=== PATIENT | male | born 1990 | race Caucasian/White ===

== ENCOUNTER 2018-12-20 10:41 | Observation (INO) | payer MEDICAID ==
[2018-12-20 10:43] VITALS: BMI 34.6
--- NOTE | 2018-12-20 11:39 | ED PDOC ---
HPI: Psych/Substance Abuse Time Seen by Provider: 12/20/18 11:06 Chief Complaint (Nursing): Psychiatric Evaluation History Per: Patient, EMS Additional Complaint(s): As per EMS they were called for a "safety check" for the patient but do not know who the caller was. Pt. states he was sleeping when EMS arrived. Offers no complaints but admits to "cutting" himself on Monday on the L forearm. Pt. states he does take meds for depression, PTSD, and anxiety and has been taking them as prescribed. Currently denies SI/HI, hallucinations. Past Medical History Reviewed: Historical Data, Nursing Documentation, Vital Signs Vital Signs: Last Vital Signs Temp 98.1 F 12/20/18 10:43 Pulse 115 H 12/20/18 10:43 Resp 20 12/20/18 10:43 BP 138/77 12/20/18 10:43 Pulse Ox 100 12/20/18 10:43 Primary Care Provider: FAMILY PROVIDER,NO - Medical History PMH: Anxiety, Depression, Hypercholesterolemia Denies: Diabetes, Hepatitis, HIV, HTN, Chronic Kidney Disease, Seizures, Sexually Transmitted Disease - Surgical History Surgical History: Appendectomy - Family History Family History: States: No Known Family Hx - Home Medications Home Medications: Ambulatory Orders Medication Instructions Recorded Bupropion HCl [Bupropion HCl Sr] 150 mg PO BID 12/20/18 Ergocalciferol (Vitamin D2) 50,000 unit PO SAT 12/20/18 [Vitamin D2] Topiramate [Topamax] 100 mg PO HS 12/20/18 Ziprasidone [Geodon Cap] 60 mg PO HS 12/20/18 - Allergies Allergies/Adverse Reactions: Allergies Allergy/AdvReac Type Severity Reaction Status Date / Time No Known Allergies Allergy Verified 03/23/17 11:31 Review of Systems ROS Statement: Except As Marked, All Systems Reviewed And Found Negative Physical Exam - Physical Exam Appears: Positive for: Well, Non-toxic, No Acute Distress Skin: Positive for: Normal Color, Warm. Negative for: Rash Eye Exam: Positive for: EOMI, Normal appearance, PERRL ENT: Positive for: Normal ENT Inspection Neck: Positive for: Supple Cardiovascular/Chest: Positive for: Regular Rate, Rhythm. Negative for: Tachycardia Respiratory: Positive for: Normal Breath Sounds. Negative for: Respiratory Distress Gastrointestinal/Abdominal: Positive for: Soft. Negative for: Tenderness Back: Positive for: Normal Inspection Extremity: Positive for: Other (2 new healing linear scars) - Laboratory Results Result Diagrams: 12/20/18 12:15 12/20/18 12:15 - ECG ECG: Positive for: Interpreted By Me ECG Rhythm: Positive for: Sinus Tachycardia. Negative for: ST/T Changes Rate: 111 O2 Sat by Pulse Oximetry: 100 - Progress ED Course And Treament: Labs, crisis eval. Pt. placed on 1:1 Pt. began vomiting in ED. 1500 HR: 112 Denies chest pain, SOB. Reports feeling anxious as he does not like being in hospitals. Also feels dehydrated. Refuses IV and anxiety meds. No tremorts noted. Pt. admits to drinking alcohol last night but states he does not drink daily. 1730 HR: 122 Pt. still feeling anxious. No tremors. Ativan 1mg PO, IV bolus x 1, zofran 4mg, pepcid 20mg IV ordered. Repeat EKG: SR at [address]-T wave changes Disposition - Clinical Impression Clinical Impression: Depression - Patient ED Disposition Is Patient to be Admitted: Transfer of Care (Signed out to Jaxson RICCI pending re-evaluation) - Disposition Disposition Time: 20:00 Condition: FAIR
[2018-12-20 12:15] LABS: BARBITURATES, UR NEGATIVE (NEGATIVE); BENZODIAZEPINES, UR NEGATIVE (NEGATIVE); OPIATES, UR NEGATIVE (NEGATIVE); PHENCYCLIDINE, UR NEGATIVE (NEGATIVE)
[2018-12-20 12:24] LABS: BASO % 0.8 % (0.0-2.0); EOS % 0.6 % (0.0-4.0); HEMOGLOBIN 16.6 g/dL (12.0-18.0); LYMPH # 1.5 K/uL (1.0-4.3); LYMPH % 32.6 % (20.0-40.0); MEAN CELL VOLUME 86.1 fl (80.0-94.0); MEAN CORPUSCULAR HGB CONC 32.6 g/dL (33.0-37.0); MEAN PLATELET VOLUME 8.8 fl (7.2-11.7); MONO # 0.3 K/uL (0.0-0.8); MONO % 5.8 % (0.0-10.0); NEUT # 2.8 K/uL (1.8-7.0); NEUT % 60.2 % (50.0-75.0); NRBC % 0.1 % (0.0-0.0); RBC 5.93 Mil/uL (4.40-5.90); RED CELL DISTRIBUTION WIDTH 13.1 % (11.5-14.5); WHITE BLOOD COUNT 4.7 K/uL (4.8-10.8)
[2018-12-20 12:35] LABS: SQUAMOUS EPITHIAL < 1 /hpf (0-5); URINE AMORPHOUS SEDIMENT MODERATE /ul (<OCC); URINE BACTERIA RARE (<OCC); URINE BILIRUBIN NEGATIVE (NEGATIVE); URINE BLOOD NEGATIVE (NEGATIVE); URINE CLARITY CLOUDY (Clear); URINE COLOR YELLOW (YELLOW); URINE GLUCOSE (UA) NEG (NEGATIVE); URINE LEUKOCYTE ESTERASE NEG Leu/uL (Negative); URINE PROTEIN 30 mg/dL (NEGATIVE); URINE UROBILINOGEN 0.2-1.0 mg/dL (0.2-1.0)
[2018-12-20 12:36] LABS: ACETAMINOPHEN < 10.0 ug/ml (10.0-30.0); ALB/GLOB RATIO 1.4 (1.0-2.1); ALBUMIN 5.1 g/dL (3.5-5.0); ALT/SGPT 194 U/L (21-72); AST/SGOT 92 U/L (17-59); BLOOD UREA NITROGEN 4 mg/dl (9-20); CALCIUM 8.9 mg/dL (8.4-10.2); GFR NON-AFRICAN AMERICAN > 60; SALICYLATE < 1.0 mg/dl
--- NOTE | 2018-12-20 17:15 | RAD ---
HISTORY: cough COMPARISON: Chest x-ray performed 03/23/17 TECHNIQUE: Chest PA and lateral, 2 views FINDINGS: LUNGS: No focal consolidation. Please note that chest x-ray has limited sensitivity for the detection of pulmonary masses. PLEURA: No significant pleural effusion identified. No definite pneumothorax . CARDIOVASCULAR: The cardiomediastinal silhouette appears within normal limits of size. No atherosclerotic calcification present. OSSEOUS STRUCTURES: No acute osseous abnormality identified. VISUALIZED UPPER ABDOMEN: Unremarkable. OTHER FINDINGS: None. IMPRESSION: No acute findings identified.
--- NOTE | 2018-12-20 18:37 | CARD ---
APPROVED REPORT Date of service: 12/20/2018 EKG Measurement Heart [id number] PA 132P25 [id number] <Conclusion> Sinus tachycardia Otherwise normal ECG
[2018-12-20] MEDS ORDERED: Sodium Chloride 0.9% 1,000 ML IV STA ×3 (18:44→21:33)
--- NOTE | 2018-12-20 20:36 | ED PDOC ---
- Laboratory Results Result Diagrams: 12/20/18 12:15 12/20/18 12:15 Lab Results: Total Bilirubin 0.4 mg/dl (0.2-1.3) 12/20/18 12:15 AST 92 U/L (17-59) H 12/20/18 12:15 ALT 194 U/L (21-72) H D 12/20/18 12:15 Alkaline Phosphatase 83 U/L (38-126) 12/20/18 12:15 Total Protein 8.7 G/DL (6.3-8.2) H 12/20/18 12:15 Albumin 5.1 g/dL (3.5-5.0) H D 12/20/18 12:15 Globulin 3.7 gm/dL (2.2-3.9) 12/20/18 12:15 Albumin/Globulin Ratio 1.4 (1.0-2.1) 12/20/18 12:15 Urine Color Yellow (YELLOW) 12/20/18 12:09 Urine Clarity Cloudy (Clear) 12/20/18 12:09 Urine pH 7.0 (5.0-8.0) 12/20/18 12:09 Ur Specific [place] 1.014 (1.003-1.030) 12/20/18 12:09 Urine Protein 30 mg/dL (NEGATIVE) 12/20/18 12:09 Urine Glucose (UA) Neg mg/dL (NEGATIVE) 12/20/18 12:09 Urine Ketones Negative mg/dL (NEGATIVE) 12/20/18 12:09 Urine Blood Negative (NEGATIVE) 12/20/18 12:09 Urine Nitrate Negative (NEGATIVE) 12/20/18 12:09 Urine Bilirubin Negative (NEGATIVE) 12/20/18 12:09 Urine Urobilinogen 0.2-1.0 mg/dL (0.2-1.0) 12/20/18 12:09 Ur Leukocyte Esterase Neg Adri/uL (Negative) 12/20/18 12:09 Urine RBC (Auto) 2 /hpf (0-3) 12/20/18 12:09 Urine Microscopic WBC 5 /hpf (0-5) 12/20/18 12:09 Ur Squamous Epith Cells < 1 /hpf (0-5) 12/20/18 12:09 Amorphous Sediment Moderate /ul (<OCC) H 12/20/18 12:09 Urine Bacteria Rare (<OCC) 12/20/18 12:09 Hyaline Casts 3-5 /hpf (0-2) H 12/20/18 12:09 - ECG O2 Sat by Pulse Oximetry: 100 - Progress ED Course And Treament: Case endorsed to global technical writer from Vanesa RICCI pending re-eval and psych admission Patient states he feels anxious. IV ativan ordered. Second IV NS bolus ordered Patient HR still 120's on re-eval Dr. Veras spoke with Dr. Goetz, medical service on-call, for placement in telemetry observation for tachycardia. Disposition - Clinical Impression Clinical Impression: Depression, Tachycardia - POA Present On Arrival: None - Disposition Disposition: Hospitalized as Observation Patient Disposition Time: 23:30 Condition: FAIR
--- NOTE | 2018-12-21 08:45 | CP.PCM.CON ---
History of Present Illness - History of Present Illness History of Present Illness: Psychiatry consult CC: "I'm fine." HPI: 28 yo male, w/ reported h/o MDD w/ psychotic features, PTSD, Anxiety referred by [place] police after his friend called expressing concerns that the patient may harm himself, the police did a welfare check and brought him to the hospital. He is currently admitted to telemetry for tachycardia. Patient reports that he does not feel acutely depressed or anxious. He reports that he made superficial cuts to his arm >10 days ago. He reports that he cuts intermittently "to feel in control", but he denies acute suicidal ideation/plan/intent. He also reports that he drank 4 beers on the night he was brought to the hospital. Patient currently A + O x 3, with full range/bright affect. He is able to contract for safety at this time. He reports that he plans to continue outpatient treatment with Dr. Casiano and weekly therapy with his therapist, Rere. He denies acute AH/VH/SI/HI/paranoia/delusions/self injurious ideation. He reports normal sleep/appetite. Patient does not want acute psychiatric admission at this time. PPHx: H/o MDD w/ psychosis, PTSD, Anxiety; compliant with outpatient treatment and medications (Buproprion and Geodon) PMHx: HLD ALL: NKDA SHx: Lives w/ his aunt, drinks ETOH socially, denies daily ETOH use, denies drug/cig use Impression: 28 yo male, w/ h/o MDD, PTSD, Anxiety, r/o Borderline Personality Disorder, denies acute depression/anxiety/ideation to harm self or others. -No 1:1 indicated at this time -Patient is psychiatrically clear for discharge with continued outpatient psychiatric follow-up -Continue current psychiatric medications Past Patient History - Past Social History Smoking Status: Never Smoked - CARDIAC Hx Hypercholesterolemia: Yes Hx Hypertension: No - PULMONARY Hx Tuberculosis: No - NEUROLOGICAL Hx Seizures: No - HEENT Hx HEENT Problems: No - RENAL Hx Chronic Kidney Disease: No - ENDOCRINE/METABOLIC Hx Endocrine Disorders: No - HEMATOLOGICAL/ONCOLOGICAL Hx AIDS: No Hx Human Immunodeficiency Virus (HIV): No - INTEGUMENTARY Hx Dermatological Problems: No - MUSCULOSKELETAL/RHEUMATOLOGICAL Hx Falls: No - GASTROINTESTINAL Hx Gastrointestinal Disorders: Yes Hx Gastroesophageal Reflux: Yes Other/Comment: acid reflux - GENITOURINARY/GYNECOLOGICAL Hx Sexually Transmitted Disorders: No - PSYCHIATRIC Hx Substance Use: No - SURGICAL HISTORY Hx Appendectomy: Yes - ANESTHESIA Hx Anesthesia: Yes Hx Anesthesia Reactions: No Hx Malignant Hyperthermia: No Has any member of the family had a problem w/ anesthesia?: No Meds Allergies/Adverse Reactions: Allergies Allergy/AdvReac Type Severity Reaction Status Date / Time No Known Allergies Allergy Verified 03/23/17 11:31 - Medications Medications: Current Medications Bupropion HCl (Wellbutrin Sr 150 Mg) 150 mg PO BID CINTHYA Ergocalciferol (Drisdol 50,000 Intl Units Cap) 1 cap PO SAT CINTHYA Metoprolol Tartrate (Lopressor) 50 mg PO Q12 CINTHYA Topiramate (Topamax) 100 mg PO HS CINTHYA Ziprasidone (Geodon Cap) 60 mg PO HS CINTHYA Results - Vital Signs Recent Vital Signs: Last Vital Signs Temp 98.5 F 12/21/18 07:58 Pulse 102 H 12/21/18 07:58 Resp 18 12/21/18 07:58 BP 128/77 12/21/18 07:58 Pulse Ox 95 12/21/18 07:58 - Labs Result Diagrams: 12/20/18 12:15 12/20/18 12:15 Labs: Laboratory Results - last 24 hr 12/20/18 12/20/18 12/20/18 11:30 12:09 12:15 WBC RBC Hgb Hct MCV MCH MCHC RDW Plt Count MPV Neut % (Auto) Lymph % (Auto) [place] % (Auto) Eos % (Auto) Baso % (Auto) Neut # (Auto) Lymph # (Auto) [place] # (Auto) Eos # (Auto) Baso # (Auto) Sodium 145 Potassium 3.4 L Chloride 108 H Carbon Dioxide 18 L Anion Gap 22 H BUN 4 L Creatinine 0.7 L Est GFR ( Amer) > 60 Est GFR (Non-Af Amer) > 60 Random Glucose 136 H Calcium 8.9 Total Bilirubin 0.4 AST 92 H ALT 194 H D Alkaline Phosphatase 83 Troponin I Total Protein 8.7 H Albumin 5.1 H D Globulin 3.7 Albumin/Globulin Ratio 1.4 TSH 3rd Generation Urine Color Yellow Urine Clarity Cloudy Urine pH 7.0 Ur Specific [place] 1.014 Urine Protein 30 Urine Glucose (UA) Neg Urine Ketones Negative Urine Blood Negative Urine Nitrate Negative Urine Bilirubin Negative Urine Urobilinogen 0.2-1.0 Ur Leukocyte Esterase Neg Urine RBC (Auto) 2 Urine Microscopic WBC 5 Ur Squamous Epith Cells < 1 Amorphous Sediment Moderate H Urine Bacteria Rare Hyaline Casts 3-5 H Salicylates Urine Opiates Screen Negative Urine Methadone Screen Negative Acetaminophen Ur Barbiturates Screen Negative Ur Phencyclidine Scrn Negative Ur Amphetamines Screen Negative U Benzodiazepines Scrn Negative U Oth Cocaine Metabols Negative U Cannabinoids Screen Positive H Alcohol, Quantitative 172 H 12/20/18 12/20/18 12/20/18 12:15 12:15 22:10 WBC 4.7 L RBC 5.93 H Hgb 16.6 Hct 51.0 MCV 86.1 D MCH 28.0 MCHC 32.6 L RDW 13.1 Plt Count 272 MPV 8.8 Neut % (Auto) 60.2 Lymph % (Auto) 32.6 [place] % (Auto) 5.8 Eos % (Auto) 0.6 Baso % (Auto) 0.8 Neut # (Auto) 2.8 Lymph # (Auto) 1.5 [place] # (Auto) 0.3 Eos # (Auto) 0.0 Baso # (Auto) 0.0 Sodium Potassium Chloride Carbon Dioxide Anion Gap BUN Creatinine Est GFR ( Amer) Est GFR (Non-Af Amer) Random Glucose Calcium Total Bilirubin AST ALT Alkaline Phosphatase Troponin I Total Protein Albumin Globulin Albumin/Globulin Ratio TSH 3rd Generation 0.87 Urine Color Urine Clarity Urine pH Ur Specific [place] Urine Protein Urine Glucose (UA) Urine Ketones Urine Blood Urine Nitrate Urine Bilirubin Urine Urobilinogen Ur Leukocyte Esterase Urine RBC (Auto) Urine Microscopic WBC Ur Squamous Epith Cells Amorphous Sediment Urine Bacteria Hyaline Casts Salicylates < 1.0 Urine Opiates Screen Urine Methadone Screen Acetaminophen < 10.0 L Ur Barbiturates Screen Ur Phencyclidine Scrn Ur Amphetamines Screen U Benzodiazepines Scrn U Oth Cocaine Metabols U Cannabinoids Screen Alcohol, Quantitative 12/21/18 00:24 WBC RBC Hgb Hct MCV MCH MCHC RDW Plt Count MPV Neut % (Auto) Lymph % (Auto) [place] % (Auto) Eos % (Auto) Baso % (Auto) Neut # (Auto) Lymph # (Auto) [place] # (Auto) Eos # (Auto) Baso # (Auto) Sodium Potassium Chloride Carbon Dioxide Anion Gap BUN Creatinine Est GFR ( Amer) Est GFR (Non-Af Amer) Random Glucose Calcium Total Bilirubin AST ALT Alkaline Phosphatase Troponin I < 0.0120 Total Protein Albumin Globulin Albumin/Globulin Ratio TSH 3rd Generation Urine Color Urine Clarity Urine pH Ur Specific [place] Urine Protein Urine Glucose (UA) Urine Ketones Urine Blood Urine Nitrate Urine Bilirubin Urine Urobilinogen Ur Leukocyte Esterase Urine RBC (Auto) Urine Microscopic WBC Ur Squamous Epith Cells Amorphous Sediment Urine Bacteria Hyaline Casts Salicylates Urine Opiates Screen Urine Methadone Screen Acetaminophen Ur Barbiturates Screen Ur Phencyclidine Scrn Ur Amphetamines Screen U Benzodiazepines Scrn U Oth Cocaine Metabols U Cannabinoids Screen Alcohol, Quantitative
[2018-12-21] MEDS: buPROPion SR 150 MG TABLET PO SCH ×2 (08:51→16:33)
--- NOTE | 2018-12-21 09:30 | CARD ---
APPROVED REPORT Date of service: 12/20/2018 EKG Measurement Heart [id number] CT 130P29 [id number] <Conclusion> Sinus tachycardia Non specific T-wave changes Abnormal ECG
[2018-12-21] MEDS ORDERED: Potassium Chloride 20 mEq ER Tab PO ONE (11:16)
--- NOTE | 2018-12-21 16:30 | CARD ---
APPROVED REPORT Date of service: 12/21/2018 EXAM: Two-dimensional and M-mode echocardiogram with Doppler and color Doppler. Other Information Quality : GoodRhythm : NSR INDICATION Abnormal EKG/Arrhythmia 2D DIMENSIONS IVSd1.06 (0.7-1.1cm)LVDd4.82 (3.9-5.9cm) LVOT Diameter2.29 (1.8-2.4cm)PWd0.97 (0.7-1.1cm) IVSs1.39 (0.8-1.2cm)LVDs2.97 (2.5-4.0cm) FS (%) 38.5 %PWs1.39 (0.8-1.2cm) M-Mode DIMENSIONS Left Atrium (MM)4.03 (2.5-4.0cm)IVSd1.03 (0.7-1.1cm) Aortic Root3.18 (2.2-3.7cm)LVDd5.41 (4.0-5.6cm) Aortic Cusp Exc.2.26 (1.5-2.0cm)PWd0.76 (0.7-1.1cm) IVSs1.47 cmFS (%) 33 % LVDs3.65 (2.0-3.8cm)PWs1.18 cm Aortic Valve AoV Peak Ahryroms810.0cm/sAoV VTI23.8cmAO Peak GR.7mmHg LVOT Peak Zvlomyco704.4cm/sLVOT VTI21.12cmAO Mean GR.4mmHg KAREEM (VMAX)1.93qw7TBI (VTI)1.73cm2 Mitral Valve MV E Hssxgycl84.1cm/sMV DECEL [id number] A Eptygdmm49.4cm/s MV FCL30cmG/A ratio1.9MVA (PHT)4.14cm2 TDI Lateral E' Peak V16.43cm/sMedial E' Peak V12.63cm/sE/Lateral E'5.7 E/Medial E'7.5 LEFT VENTRICLE The left ventricle is normal size. There is normal left ventricular wall thickness. The left ventricular systolic function is normal. The estimated ejection fraction is 60-65% No regional wall motion abnormalities noted.. The left ventricular diastolic function is normal. No left ventricle thrombus noted on this study. There is no ventricular septal defect visualized. There is no left ventricular aneurysm. There is no mass noted in the left ventricle. RIGHT VENTRICLE The right ventricle is normal size. There is normal right ventricular wall thickness. The right ventricular systolic function is normal. ATRIA The left atrium size is normal. The right atrium size is normal. The interatrial septum is intact with no evidence for an atrial septal defect. AORTIC VALVE The aortic valve is normal in structure. No aortic regurgitation is present. There is no aortic valvular stenosis. There is no aortic valvular vegetation. MITRAL VALVE The mitral valve is normal in structure. There is no evidence of mitral valve prolapse. There is no mitral valve stenosis. There is no mitral valve regurgitation noted. TRICUSPID VALVE The tricuspid valve is normal in structure. There is no tricuspid valve regurgitation noted. There is no tricuspid valve prolapse or vegetation. There is no tricuspid valve stenosis. PULMONIC VALVE The pulmonary valve is normal in structure. There is no pulmonic valvular regurgitation. There is no pulmonic valvular stenosis. GREAT VESSELS The aortic root is normal in size. The ascending aorta is normal in size. The pulmonary artery is normal. The IVC is normal in size and collapses >50% with inspiration. PERICARDIAL EFFUSION There is no pericardial effusion. There is no pleural effusion. <Conclusion> The estimated ejection fraction is 60-65% The left ventricular diastolic function is normal. The left atrium size is normal. There is no tricuspid valve regurgitation noted.
--- NOTE | 2018-12-22 01:13 | CON ---
DATE: 12/21/2018 CARDIOLOGY CONSULTATION REASON FOR CONSULTATION: Palpitation and sinus tachycardia. HISTORY OF PRESENT ILLNESS: The patient is a 28-year-old male who has a history of depression and attempted suicide in the past, admitted to have attempted to cut his left arm. The patient stated that he did something to his right arm in September 2018 with an intent to hurt himself. The patient denies any chest pain and is unaware of any prior cardiac history. SOCIAL HISTORY: The patient is a smoker, drinker and abuses cannabinoids. He lives with his mother. MEDICATIONS: Geodon 60 mg at bedtime, Lopressor 50 mg twice a day, Wellbutrin 150 mg twice a day, and Topamax 100 mg at bedtime. REVIEW OF SYSTEMS: No nausea or vomiting. No fever or chills. The patient does hear whispers associated to the auditory hallucinations. PHYSICAL EXAMINATION: GENERAL: The patient is a young male who does not appear to be in acute distress. VITAL SIGNS: Blood pressure 110/77, heart rate 102, temperature 98.5, and respirations 18. HEENT: Normocephalic. CHEST: Clear. HEART: S1 and S2, regular. EXTREMITIES: Abrasions noted in the right forearm. LABORATORY DATA: SMA-7: Sodium 145, potassium 3.4, chloride 108, CO2 of 18, glucose 156, BUN 4, creatine 0.7. One set of troponin is negative. TSH level is within normal limit. Hemoglobin and hematocrit are 16.6 and 51.0, white count 4.7, and platelet count 172,000. Urine drug screen is positive for cannabinoids. Alcohol level was 172 on admission. Admitting EKG revealed sinus tachycardia at a rate of 119 with nonspecific T-wave inversion. Repeat EKG revealed sinus tachycardia at 111. Chest x-ray was unremarkable. ASSESSMENT: 1. Alcohol intoxication and cannabinoid abuse. 2. Depression with a history of suicidal ideation. 3. Hypokalemia. RECOMMENDATIONS: Continue current Geodon or Lopressor. Supplement potassium with K-Dur 20 mEq orally now. Obtain D-dimer and an echocardiogram. Neil Leo MD [facility] # [id number]
--- NOTE | 2018-12-22 04:12 | HP ---
HISTORY OF PRESENT ILLNESS: The patient is a 28-year-old male with history of depression, on medications, presented to emergency room for anxiety/depression. The patient was found to be tachycardic in the range of 110 and the patient was admitted to the medical floor for further management. The patient denied to have any fever. No symptoms suggestive of shortness of breath or hypoxia. REVIEW OF SYSTEMS: Other review of systems is negative. ALLERGIES: NO KNOWN ALLERGIES. MEDICATIONS: Reviewed, as per MAR and ordered. SOCIAL HISTORY: Denied smoking, EtOH or substance abuse. FAMILY HISTORY: Noncontributory. PAST MEDICAL HISTORY: Depression/anxiety. PHYSICAL EXAMINATION: GENERAL: The patient was found to be not in any cardiopulmonary distress. VITAL SIGNS: Blood pressure 124/76, heart rate 102, temperature 98.6, respiratory rate 18. HEENT: Pupils are equal and reactive to light. Normal-appearing mucosa of the conjunctivae, oropharynx and nasal membrane mucosa. NECK: Supple. No JVD. No carotid bruits. No lymph node. No thyromegaly. CHEST AND LUNGS: Bilateral symmetrical expansion. Good air exchange. No rales, no rhonchi. CARDIOVASCULAR SYSTEM: PMI not localized. S1 and S2. No additional sounds. ABDOMEN: Normoactive bowel sounds. No tenderness. No organomegaly. No masses. EXTREMITIES: No cyanosis. No clubbing. No edema. CENTRAL NERVOUS SYSTEM: Alert, awake, oriented x2. No neurological deficits could be appreciated. ASSESSMENT: Anxiety, depression, sinus tachycardia. PLAN: Will check echocardiogram and start patient on metoprolol 50 mg twice a day and follow psychiatry evaluation. Donnell Goetz MD
[2018-12-22 08:32] VITALS: RESP 20
[2018-12-22] MEDS: buPROPion SR 150 MG TABLET PO SCH (08:54)
[2018-12-22] MEDS ORDERED: Ergocalciferol 50,000 Intl Units Cap PO SCH (09:00)
[2018-12-22 12:11] VITALS: BP 107/72; PULSE 66; TEMP 98.1; O2SAT 99
--- NOTE | 2018-12-22 18:08 | PN ---
DATE: 12/22/2018 SUBJECTIVE: The patient denies any chest pain, palpitation, depression, or suicidal ideation. PHYSICAL EXAMINATION: VITAL SIGNS: Blood pressure 107/72, heart rate 66, temperature 98.1, and respirations 20. HEENT: Normocephalic. CHEST: Clear. HEART: S1 and S2, regular. EXTREMITIES: No edema. LABORATORY DATA: Echocardiographic study revealed normal ejection fraction and normal left ventricular diastolic function. ASSESSMENT: 1. Alcohol intoxication and cannabinoid abuse. 2. Improved sinus tachycardia. 3. Mild hypokalemia. On admission, the patient did receive potassium chloride replacement. 4. Depression. The patient currently denies any depression feeling or suicidal ideation. RECOMMENDATIONS: The patient can be discharged from the cardiac point of view if cleared medically and psychiatry-polo. Neil Leo MD
--- NOTE | 2018-12-23 11:50 | DS ---
REASON FOR ADMISSION: This is a 28-year-old male with history of longstanding psychiatric problems, on medications, was admitted for sinus tachycardia. COURSE OF HOSPITALIZATION: The patient was admitted to telemetry floor and he had a Cardiology consult done by Dr. Leo. The patient had an echocardiogram that did not show any significant abnormality as well as a TSH that was normal. The patient did not have any source of infection. The patient was given a couple of doses of metoprolol and heart rate was well controlled, and the patient was cleared by Cardiology after discontinuing metoprolol and to be discharged and followed by Psychiatry. The patient also was seen by psychiatrist and he was cleared for discharge home. FINAL DIAGNOSES: Depression and anxiety, inappropriate sinus tachycardia. [facility] MD Bishnu
== END 2018-12-22 15:40 | disposition home or self-care (01) ==
LOC: H.ER 10:41 → INTOOBSV 16:58 → H.ERHOLD 16:58 → H.TEL 12-21 01:00
PROVIDERS: ADMIT Internal Medicine; ATTEND Internal Medicine
DX: F32.3 Major depressive disorder, single episode, severe with psychotic features (principal); F43.10 Post-traumatic stress disorder, unspecified; E78.00 Pure hypercholesterolemia, unspecified; E78.5 Hyperlipidemia, unspecified; E87.6 Hypokalemia; F10.129 Alcohol abuse with intoxication, unspecified; F17.200 Nicotine dependence, unspecified, uncomplicated; K21.9 Gastro-esophageal reflux disease without esophagitis; R00.0 Tachycardia, unspecified; Y90.6 Blood alcohol level of 120-199 mg/100 ml
CPT/HCPCS: 36415; 71046; 80053; 80320; 80324; 80329; 80345; 80346; 80349; 80353; 80358; 80361; 81003; 83992; 84443; 84484; 85025; 85378; 93005; 93306; 96374; 96375; 99285; G0378; J2060; J2405; J7030